=== PATIENT | male | born 1985 | race Caucasian/White ===

== ENCOUNTER → 2017-12-20 | Outpatient (CLI) | payer BC ==
--- NOTE | 2017-12-20 14:30 | XR ---
Left foot and left ankle HISTORY: Pain 3 views of the left foot and 3 views of the left ankle submitted. Bone mineralization, joint spaces and alignment are maintained. Soft tissue swelling noted is mild at the ankle. There is a talar beak with small associated well-corticated ossific fragment present. No acute fracture or dislocation is evident. IMPRESSION: No acute abnormality. Additional findings above.
== END | disposition home or self-care (01) ==
LOC: RADXRMAIN 09:50
PROVIDERS: ATTEND Physician Assistant
DX: M25.572 Pain in left ankle and joints of left foot (principal)

== ENCOUNTER → 2019-12-05 | Outpatient (CLI) | payer BC ==
--- NOTE | 2019-12-05 12:25 | XR ---
Right knee HISTORY: Right knee pain for 3 days 3 views of the right knee Bone mineralization, joint spaces and alignment are maintained. Questionable suprapatellar density co uld be indicative of effusion. Probable bone island present within the posterior aspect of the latera l femoral condyle. No fracture or dislocation. IMPRESSION: Correlate for joint effusion. Knee MRI may be of benefit.
== END | disposition home or self-care (01) ==
LOC: RADXRMAIN 09:45
PROVIDERS: ATTEND Nurse Practitioner Family
DX: M25.561 Pain in right knee (principal)

== ENCOUNTER → 2019-12-29 | Outpatient (CLI) | payer BC ==
--- NOTE | 2019-12-29 08:35 | CT ---
EXAMINATION TYPE: CT knee RT wo con DATE OF EXAM: 12/29/2019 COMPARISON: Right knee x-ray December 05, 2019. HISTORY: Effusion Rt Knee per order. Pain without injury per patient. CT DLP: 334.90 mGycm Automated exposure control for dose reduction was used. FINDINGS: No acute fracture or dislocation is seen. Tricompartmental joint spaces are preserved. No significant spurring. PCL intact sagittal image 23. No significant suprapatellar joint effusion is seen. Visuali zed extensor tendon unremarkable. Hoffa's fat pad maintained. No popliteal cyst is evident. Multiple preserved. IMPRESSION: As above. Unremarkable study.
== END | disposition home or self-care (01) ==
LOC: RADCTMAIN 06:53
PROVIDERS: ATTEND Family Medicine
DX: M25.461 Effusion, right knee (principal)

== ENCOUNTER → 2022-07-13 | Outpatient (CLI) | payer BC ==
--- NOTE | 2022-07-13 11:15 | US ---
EXAMINATION TYPE: US carotid duplex BILAT DATE OF EXAM: 07/13/2022 COMPARISON: NONE CLINICAL HISTORY: R10.13 EPIGASTRIC PAIN, R07.9 CHEST PAIN, R68.84. Jaw pain. Hx transposition of th e great vessels. Hypertension. TECHNIQUE: Carotid duplex ultrasound examination. Indirect Doppler criteria was utilized. FINDINGS: EXAM MEASUREMENTS: RIGHT: Peak Systolic Velocity (PSV) cm/sec ----- Right CCA: 102.6 ----- Right ICA: 87.5 ----- Right ECA: 112.1 ICA/CCA ratio: 0.9 RIGHT: End Diastole cm/sec ----- Right CCA: 24.1 ----- Right ICA: 38.0 ----- Right ECA: 17.6 LEFT: Peak Systolic Velocity (PSV) cm/sec ----- Left CCA: 110.5 ----- Left ICA: 104.3 ----- Left ECA: 77.9 ICA/CCA ratio: 0.9 LEFT: End Diastole cm/sec ----- Left CCA: 30.2 ----- Left ICA: 33.1 ----- Left ECA: 10.9 VERTEBRALS (direction of flow): Right Vertebral: Antegrade Left Vertebral: Antegrade Rhythm: Normal CLINICAL QUALITY ASSURANCE ASSOCIATE NOTES: No elevated velocities at this time. No significant focal plaque on grayscale images. IMPRESSION: No hemodynamically significant stenosis identified in either internal carotid artery. Criteria for Assigning % of Stenosis / Diameter reduction (Estimation based on the indirect measurements of the internal carotid artery velocities (ICA PSV). 1. Normal (no stenosis)=ICA PSV < 125 cm/s: ratio < 2.0: ICA EDV<40 cm/s. 2. Less than 50% stenosis=ICA PSV < 125 cm/s: ratio < 2.0: ICA EDV<40 cm/s. 3. 50 to 69% stenosis=ICA PSV of 125 to 230 cm/s: ration 2.0 ? 4.0: ICA EDV 40-100 cm/s. 4. Greater than 70% stenosis to near occlusion= ICA PSV > 230 cm/s: ratio > 4.0: ICA EDV > 100 cm/s. 5. Near occlusion= ICA PSV velocities may be low or undetectable: variable ratio and ICA EDV. 6. Total occlusion=unable to detect flow.
--- NOTE | 2022-07-13 11:16 | US ---
EXAMINATION TYPE: US abdomen complete DATE OF EXAM: 07/13/2022 COMPARISON: NONE CLINICAL HISTORY: R10.13 EPIGASTRIC PAIN, R07.9 CHEST PAIN, R68.84. Epigastric pain TECHNIQUE: Multiple sonographic images of the abdomen are obtained. FINDINGS: EXAM MEASUREMENTS: Liver Length: 12.7 cm Gallbladder Wall: 0.36 cm Spleen: 11.6 cm Right Kidney: 10.0 x 5.8 x 5.2 cm Left Kidney: 11.7 x 5.1 x 6.0 cm PRODUCTION EDITOR NOTES: Limited due to gas. Pancreas: Limited visibility. Liver: Appears very coarse with increased echogenicity. Gallbladder: Slightly limited. Wall appears thickened. Evidence for sonographic Wilkes's sign: No CBD: Obscured Spleen: Appears wnl Right Kidney: No hydronephrosis or masses seen Left Kidney: No hydronephrosis or masses seen Upper IVC: Appears wnl Abd Aorta: Slightly limited visibility of prox. Iliacs were obscured. No aneurysm and visualized abdominal aorta. IVC seen hepatic dome. Visualized portion of pancreas unr emarkable. Visualized portion of liver heterogeneously hyperechoic. No intraluminal mobile shadowing gallstones. No hydronephrosis in either kidney. Spleen normal in size. IMPRESSION: Suboptimal study without acute finding identified. Common bile duct not visualized. Proba ble some mild early fatty infiltration of liver noted.
== END | disposition home or self-care (01) ==
LOC: RADUSWWP 09:32
PROVIDERS: ATTEND Family Medicine
DX: R10.13 Epigastric pain (principal); R68.84 Jaw pain
CPT/HCPCS: 76700; 93880

== ENCOUNTER → 2022-08-15 | Outpatient (CLI) | payer BC ==
--- NOTE | 2022-08-15 11:27 | CT ---
EXAMINATION TYPE: CT heart w calcium score DATE OF EXAM: 08/15/2022 COMPARISON: HISTORY: Screening for cardiovascular disorder. 213.9 CT DLP: 57.3 mGycm Automated exposure control for dose reduction was used. CT CALCIUM SCORING Coronary calcium is a marker for plaque (fatty deposits) in a blood vessel or atherosclerosis (harden ing of the arteries). The presence and amount of calcium detected in a coronary artery by the CT sca n, indicates the presence and amount of atherosclerotic plaque. These calcium deposits appear years before the development of heart disease symptoms such as chest pain and shortness of breath. A calcium score is computed for each of the coronary arteries based upon the volume and density of th e calcium deposits. This can be referred to as your calcified plaque burden. It does not correspond directly to the percentage of narrowing in the artery but does correlate with the severity of the un derlying coronary atherosclerosis. PROCEDURE TECHNIQUE - Prospective Gating was used. Slice thickness: 3mm. Density threshold (HU): 130, Pixel threshold: 3, Algorithm: discrete. RESULTS Region: LM Calcium Score (Agatston): 0 Volume (mm3): 0 Mass (g): 0 Region: RCA Calcium Score (Agatston): 0 Volume (mm3): 0 Mass (g): 0 Region: LAD Calcium Score (Agatston): 0 Volume (mm3): 0 Mass (g): 0 Region: CX Calcium Score (Agatston): 0 Volume (mm3): 0 Mass (g): 0 Region: PDA Calcium Score (Agatston): 0 Volume (mm3): 0 Mass (g): 0 Total: Calcium Score (Agatston): 0 Volume (mm3): 0 Mass (g): 0 TOTAL CALCIUM SCORE: 0 IMPRESSION: Calcium Score: 0 Implication: No identifiable plaque. Risk of Coronary Artery Disease: Very low, generally less than 5%. CALCIUM SCORE IMPLICATION RISK OF C ORONARY ARTERY DISEASE 0 No identifiable plaque Very low, generally less than 5% 1-10 Minimal identifiable plaque Very unlikely, less than 10% 11-100 Definite, at least mild atherosclerotic plaque Mild or m inimal coronary narrowings likely 101-400 Definite, at least moderate atherosclerotic plaque Mild coronary ar chilo disease highly likely, significant narrowing possible 401 or Higher Extensive atherosclerotic plaque High lik elihood of at least one significant coronary narrowing
--- NOTE | 2022-08-15 13:12 | CA ---
Exercise Stress Test Report Name: Mike Real Exam Date: 08/15/2022 09:14 Exam Location: [place] Stress Ht (in): 68 Wt (lb): 185 BSA: 1.98 Ordering Phys: Joni Bradford DO Referring Phys: Cyndy Rogers [facility] Technologist: Reno Pineda Age: 37 Gender: M : 1985 Procedure CPT: Indications: R07.9 CHEST PAIN ICD-10 Codes: Patient History: T-spine pain radiating to the chest and arm. Medications: Meds past 24 hrs: Pretest Chest Pain: STRESS TEST Humberto Protocol Exercise Duration (min:sec): 08:[address] Depressions (mm): Angina Score: Arroyo Score: Resting HR (bpm): 94 Peak HR (bpm): 177 Resting BP (mmHg): 144 / 98 Peak BP (mmHg): 203 / 105 MPHR: 184 Target HR: 156 % MPHR: 96 METS: 10.3 Total Dose: Peak Dose: Atropine: Double Product: 00937 BP Response: Stress Termination: Reached target heart rate Stress Symptoms: No chest pain or symptoms Stress Summary: ECG ANALYSIS Resting ECG: Stress ECG: CONCLUSIONS Patient underwent exercise stress EKG with a Humberto protocol treadmill stress test. Patient exercised into Stage 2 for a total of 8 minutes and 10 seconds reaching a total of 10.3 METS. Patient's maximum heart rate was 177 which represented 96% age- predicted maximum heart rate. Stress EKG findings: At baseline patient's EKG showed normal sinus rhythm, normal axis, incomplete right bundle branch block with ST depressions and T-wave inversions V1 through V5. At peak exercise, EKG showed no significant change from baseline. Conclusions: 1. Nondiagnostic stress EKG secondary baseline EKG abnormalities. Incomplete right bundle branch block with T-wave inversions through the precordial leads can be seen with RVH. Consider stress testing with imaging if clinically indicated. Clinical correlation recommended. 2. Fair exercise capacity. Dr. [place] DO (Electronically Signed) Final Date: 15 August 2022 13:11
--- NOTE | 2022-08-15 13:12 | CA ---
Exercise Stress Test Report Name: Mike Real Exam Date: 08/15/2022 09:14 Exam Location: [place] Stress Ht (in): 68 Wt (lb): 185 BSA: 1.98 Ordering Phys: Joni Bradford DO Referring Phys: Cyndy Rogers [facility] Technologist: Reno Pineda Age: 37 Gender: M : 1985 Procedure CPT: Indications: R07.9 CHEST PAIN ICD-10 Codes: Patient History: T-spine pain radiating to the chest and arm. Medications: Meds past 24 hrs: Pretest Chest Pain: STRESS TEST Humberto Protocol Exercise Duration (min:sec): 08:[address] Depressions (mm): Angina Score: Arroyo Score: Resting HR (bpm): 94 Peak HR (bpm): 177 Resting BP (mmHg): 144 / 98 Peak BP (mmHg): 203 / 105 MPHR: 184 Target HR: 156 % MPHR: 96 METS: 10.3 Total Dose: Peak Dose: Atropine: Double Product: 15102 BP Response: Stress Termination: Reached target heart rate Stress Symptoms: No chest pain or symptoms Stress Summary: ECG ANALYSIS Resting ECG: Stress ECG: CONCLUSIONS Patient underwent exercise stress EKG with a Humberto protocol treadmill stress test. Patient exercised into Stage 2 for a total of 8 minutes and 10 seconds reaching a total of 10.3 METS. Patient's maximum heart rate was 177 which represented 96% age- predicted maximum heart rate. Stress EKG findings: At baseline patient's EKG showed normal sinus rhythm, normal axis, incomplete right bundle branch block with ST depressions and T-wave inversions V1 through V5. At peak exercise, EKG showed no significant change from baseline. Conclusions: 1. Nondiagnostic stress EKG secondary baseline EKG abnormalities. Incomplete right bundle branch block with T-wave inversions through the precordial leads can be seen with RVH. Consider stress testing with imaging if clinically indicated. Clinical correlation recommended. 2. Fair exercise capacity. Dr. [place] DO (Electronically Signed) Final Date: 15 August 2022 13:11
== END | disposition home or self-care (01) ==
LOC: RADNMMAIN 08:37
PROVIDERS: ATTEND Family Medicine
DX: R07.9 Chest pain, unspecified (principal); Z82.49 Family history of ischemic heart disease and other diseases of the circulatory system
CPT/HCPCS: 75571; 93017